=== PATIENT | male | born 1990 | race Caucasian/White ===

== ENCOUNTER 2019-11-18 16:50 | Emergency (ER) | payer SELFPAY ==
[2019-11-18 16:50] VITALS: BP 114/75; PULSE 91; RESP 18; TEMP 37.5; O2SAT 99; BMI 21.2
--- NOTE | 2019-11-18 17:20 | ED_ITS ---
HPI - Abdominal Pain General: Chief Complaint: Back Pain/Injury Stated Complaint: kidney problems Source: patient Mode of arrival: ambulatory Limitations: no limitations History of Present Illness: HPI narrative: Patient is a 29-year-old male who presents to ED today with a complaint of left-sided abdominal pain. Patient tells me 6 weeks ago he was seen at an emergency department in [place] where he was diagnosed with a urinary tract infection. Patient tells me he was placed on antibiotics at this visit. He states a few days ago while at home he noticed he urinated two small kidney stones. He states since then he has had severe pain to the left side of his abdomen. He is complaining of nausea without vomiting. He reports a decreased appetite. Normal bowel movements. He has not been running fevers. MD elicited complaint: abdominal pain Pertinent past history: kidney stones Onset (ago): day(s) Pain Consistency: constant Location: LUQ Severity: severe Quality: sharp Radiation: none Migration to: no migration Exacerbating factors: nothing Relieving factors: nothing Associated Symptoms: Reports dysuria, hematuria and nausea; Denies change in bowel habits, chills, diarrhea, fever(s) and vomiting Review of Systems Const: Reports: change in appetite; Denies: fever(s), chills, body aches, change in weight, fatigue or malaise Eyes: Denies: change in vision, blurry vision or photophobia Card: Denies: chest pain Resp: Denies: dyspnea GI: Reports: abdominal pain and nausea; Denies: vomiting, diarrhea or change in bowel habits : Reports: flank pain, dysuria and hematuria; Denies: difficulty urinating, urinary urgency, urinary dribbling, genital pain or genital lesions Musc: Denies: neck pain, back pain, extremity pain, extremity swelling, joint pain or joint swelling Skin/Breast: Denies: rash Neuro: Denies: headache(s), numbness in extremities, weakness in extremities or sensory changes Physical Exam Const: COMMON NORMALS: average body habitus, patient oriented x3, no limitations, healthy appearing, alert and well nourished GENERAL APPEARANCE: cooperative and in distress (appears very uncomfortable) ORIENTATION/CONSCIOUSNESS: Yes oriented to person, Yes oriented to place and Yes oriented to time HENMT: COMMON NORMALS: normocephalic and atraumatic HEAD & SCALP: normocephalic and atraumatic Resp: COMMON NORMALS: normal respiratory effort and clear to auscultation bilaterally AUSCULTATION: clear to auscultation bilaterally Cardio: COMMON NORMALS: regular rate and regular rhythm RATE: regular rate RHYTHM: regular rhythm GI: COMMON NORMALS: Normal to inspection, nondistended, normoactive bowel alvarez nds present, No hepatosplenomegaly present and no masses PALPATION: Yes Tenderness to palpation present (GI) Details: LUQ, Yes Guarding due to palpation present (GI) and Yes No hepatosplenomegaly present : BLADDER/KIDNEY EXAM: Yes CVA tenderness on the left Back/Pelvis: GENERAL BACK: Yes CVA tenderness Extremity: GENERAL: Yes normal exam except as noted Neuro: COMMON NORMALS: patient oriented x3 SENSORIUM/ORIENTATION: Yes alert, Yes oriented to person, Yes oriented to place and Yes oriented to time Skin: COMMON NORMALS: no rashes or lesions noted GENERAL SKIN EXAM: no rashes or lesions noted Course Consultations: Consultation #1: Dr. Augustin urology, accepts patient Consultation #2: Dr. Sotelo hospitalist, accepts patient Vital Signs: Vital signs: Vital Signs Temperature 99.5 F 11/18/19 16:50 Pulse Rate 72 11/18/19 20:00 Respiratory Rate 18 11/18/19 20:00 Blood Pressure 112/67 11/18/19 20:00 Pulse Oximetry 97 11/18/19 20:00 MDM - Abdominal Pain MDM Narrative: Medical decision making narrative: Patient has obstructive pyelonephritis secondary to a 7 x 9 mm left ureter stone. He has a white count of 34.2. He has a normal lactate. He is not tachycardic, hypotensive, or febrile. Unfortunately we do not have urology solids control technician. I have spoken to Dr. Gavin trammell [facility] who will accept patient. He has been started on IV rocephin. Lab Data: Labs: Lab Results 11/18/19 11/18/19 11/18/19 Range/Units 17:30 17:30 17:30 WBC 34.2 H* (4.0-10.0) 10^3/ uL RBC 4.04 L (4.1-5.3) 10^6/u L Hgb 13.1 (11.7-16.6) g/dL Hct 37.9 L (42.0-52.0) % MCV 93.8 (80-94) fL MCH 32.4 (28.0-34.0) pg MCHC 34.6 (30.0-36.0) g/dL RDW 11.9 L (12.1-15.1) % Plt Count 473 H (130-400) 10^3/c mm MPV 10.2 (7.4-10.4) fL Neut % (Auto) 86.8 % Lymph % (Auto) 4.7 % [place] % (Auto) 6.3 % Eos % (Auto) 0.1 % Baso % (Auto) 0.3 % Neut # (Auto) 29.69 H (1.8-7.7) 10^3/u L Lymph # (Auto) 1.6 (0.8-4.8) 10^3/u L [place] # (Auto) 2.1 H (0.2-0.9) 10^3/u L Eos # (Auto) 0.0 (0.0-0.8) 10^3/u L Baso # (Auto) 0.1 (0.0-0.1) 10^3/u L Nucleated RBC % (a uto) 0 % Nucleated RBCs # 0.0 /100WBC Sodium 125 L (136-145) mmol/L Potassium 4.8 (3.5-5.1) mmol/L Chloride 88 L (98-107) mmol/L Carbon Dioxide 24 (22-29) mmol/L Anion Gap 17.8 (5-19) BUN 18 (6-20) mg/dL Creatinine 1.2 (0.7-1.2) mg/dL GFR Calculation 72.1 L (90-130) mL/min Glucose 127 H (65-115) mg/dL Calculated Osmolal ity 263 L (285-295) mOsm/k g Lactic Acid 1.3 (0.5-2.2) mmol/L Calcium 8.9 (8.5-10.5) mg/dL Total Bilirubin 1.2 (0.15-1.2) mg/dL AST 18 (0-40) U/L ALT 16 (0-41) U/L Alkaline Phosphata se 156 H (40-130) IU/L Total Protein 7.7 (6.6-8.7) g/dL Albumin 3.1 L (3.5-5.2) g/dL Globulin 4.6 (1.3-4.6) g/dL Lipase 23 (13-60) U/L Urine Color (Yellow) Urine Appearance (CLEAR) Urine pH (5-7) Ur Specific Gravit y (1.005-1.030) Urine Protein (Negative) Urine Glucose (UA) (Normal) Urine Ketones (Negative) Urine Blood (Negative) Urine Nitrate (Negative) Urine Bilirubin (Negative) Urine Urobilinogen (Negative) mg/dL Ur Leukocyte Eleanor ase (Negative) Urine RBC (0-2) /hpf Urine WBC (0-5) /hpf Ur Squamous Epith Cells (0-5) /hpf Amorphous Sediment Urine Bacteria (NONE) /hpf Coarse Granular Ca sts /lpf 11/18/19 Range/Units 17:30 WBC (4.0-10.0) 10^3/ uL RBC (4.1-5.3) 10^6/u L Hgb (11.7-16.6) g/dL Hct (42.0-52.0) % MCV (80-94) fL MCH (28.0-34.0) pg MCHC (30.0-36.0) g/dL RDW (12.1-15.1) % Plt Count (130-400) 10^3/c mm MPV (7.4-10.4) fL Neut % (Auto) % Lymph % (Auto) % [place] % (Auto) % Eos % (Auto) % Baso % (Auto) % Neut # (Auto) (1.8-7.7) 10^3/u L Lymph # (Auto) (0.8-4.8) 10^3/u L [place] # (Auto) (0.2-0.9) 10^3/u L Eos # (Auto) (0.0-0.8) 10^3/u L Baso # (Auto) (0.0-0.1) 10^3/u L Nucleated RBC % (a uto) % Nucleated RBCs # /100WBC Sodium (136-145) mmol/L Potassium (3.5-5.1) mmol/L Chloride (98-107) mmol/L Carbon Dioxide (22-29) mmol/L Anion Gap (5-19) BUN (6-20) mg/dL Creatinine (0.7-1.2) mg/dL GFR Calculation (90-130) mL/min Glucose (65-115) mg/dL Calculated Osmolal ity (285-295) mOsm/k g Lactic Acid (0.5-2.2) mmol/L Calcium (8.5-10.5) mg/dL Total Bilirubin (0.15-1.2) mg/dL AST (0-40) U/L ALT (0-41) U/L Alkaline Phosphata se (40-130) IU/L Total Protein (6.6-8.7) g/dL Albumin (3.5-5.2) g/dL Globulin (1.3-4.6) g/dL Lipase (13-60) U/L Urine Color Yellow (Yellow) Urine Appearance Sl cloudy A (CLEAR) Urine pH 5 (5-7) Ur Specific Gravit y 1.015 (1.005-1.030) Urine Protein 1+ H (Negative) Urine Glucose (UA) Norm (Normal) Urine Ketones Negative (Negative) Urine Blood Neg (Negative) Urine Nitrate Positive H (Negative) Urine Bilirubin Neg (Negative) Urine Urobilinogen 4+ H (Negative) mg/dL Ur Leukocyte Eleanor ase 1+ H (Negative) Urine RBC 0-4 H (0-2) /hpf Urine WBC 25-40 H (0-5) /hpf Ur Squamous Epith Cells 0-4 H (0-5) /hpf Amorphous Sediment Not Reportable Urine Bacteria 3+ H (NONE) /hpf Coarse Granular Ca sts Rare /lpf Imaging Data ^: CT Abd/Pel: Radiologist's impression: [address] [address] [address] Scan Report Signed Patient: Alejandro Wilkinson Unit #: [id number] : 1990 Age/Sex: 29 / M ADM Date: 11/18/19 Loc: ER Room/Bed: Attending Dr: Ordering Provider/Ordering MD: Khalida Vasquez Date of Service: 11/18/19 Procedure(s): CT kidney stone 30585 Accession Number(s): [id number] Report Number: [id number] PROCEDURE INFORMATION: Exam: CT Abdomen And Pelvis Without Contrast Exam date and time: 11/18/2019 6:21 PM Age: 29 years old Clinical indication: Abdominal pain; Left; Patient HX: C/O worsening L flank pain - known stone; Additional info: L flank, luq pain; Known kidney stones; Severe leukocytosis TECHNIQUE: Imaging protocol: Computed tomography of the abdomen and pelvis without contrast. Radiation optimization: All CT scans at this facility use at least one of these dose optimization techniques: automated exposure control; mA and/or kV adjustment per patient size (includes targeted exams where dose is matched to clinical indication); or iterative reconstruction. COMPARISON: No relevant prior studies available. RADIATION DOSE METRICS: Total DLP (mGy-cm): 548.05 FINDINGS: Liver: Normal. No mass. Gallbladder and bile ducts: Normal. No calcified stones. No ductal dilation. Pancreas: Normal. No ductal dilation. Spleen: Normal. No splenomegaly. Adrenals: Normal. No mass. Kidneys and ureters: There is a 7.6 x 9.5 mm calculus in the mid to distal left ureter. Moderate left hydronephrosis/hydroureter and perinephric/periureteral inflammatory stranding. The left kidney is inhomogeneous raising concern for pyelonephritis. There is a 2 mm nonobstructing right renal calculus. Stomach and bowel: Unremarkable. No obstruction. No mucosal thickening. Appendix: A normal appendix is identified. Intraperitoneal space: There is a small amount of free fluid in the pelvis. Vasculature: Unremarkable. No abdominal aortic aneurysm. Lymph nodes: Unremarkable. No enlarged lymph nodes. Bladder: Unremarkable as visualized. Reproductive: Unremarkable as visualized. Bones/joints: Unremarkable. No acute fracture. Soft tissues: Unremarkable. CT/CT kidney stone [id number] IMPRESSION: 1. There is a 7.6 x 9.5 mm calculus in the mid to distal left ureter with obstructive changes as described above. 2. Left kidney is inhomogeneous concerning for acute pyelonephritis. Consider CT scan of the abdomen/pelvis with IV contrast and delayed images, renal protocol, for further evaluation as clinically warranted. Radiation Dose CTDIVOL = (mGy): DLP = 548.05 (mGy-cm) Dictated By: Laurence Romero MD Signed By: Laurence Romero MD Signed Date/Time: 11/18/192015 DD/ 13 Discharge Plan Discharge Patient Disposition: Xfer Other Clinical Impression: Obstructive pyelonephritis, Calculus of left ureter Leukocytosis Qualifiers: Leukocytosis type: unspecified Qualified Code(s): D72.829 - Elevated white blood cell count, unspecified Condition: Stable Coding Level of Care Code ED Zone Supervisor Firearms for Chg Fwd Exam Comprehensive
[2019-11-18 17:40] LABS: Basophils # 0.1 10^3/uL (0.0-0.1); Basophils % 0.3 %; Eosinophils % 0.1 %; Hematocrit 37.9 % (42.0-52.0); Hemoglobin 13.1 g/dL (11.7-16.6); Lymphocytes # 1.6 10^3/uL (0.8-4.8); Lymphocytes % 4.7 %; Mean Corpuscular HGB Conc 34.6 g/dL (30.0-36.0); Mean Corpuscular Hemoglobin 32.4 pg (28.0-34.0); Mean Corpuscular Volume 93.8 fL (80-94); Mean Platelet Volume 10.2 fL (7.4-10.4); Monocytes # 2.1 10^3/uL (0.2-0.9); Monocytes % 6.3 %; Neutrophils # 29.69 10^3/uL (1.8-7.7); Neutrophils % 86.8 %; Nucleated Red Blood Cells % 0 %; Platelet Count 473 10^3/cmm (130-400); Red Blood Count 4.04 10^6/uL (4.1-5.3); Red Cell Distribution Width 11.9 % (12.1-15.1)
[2019-11-18] MEDS: morphine 4 mg/mL SDV 1 mL IVP (17:45)
[2019-11-18] MEDS: ondansetron 2 mg/ML SDV 2 mL 4 MG IVP (17:45)
[2019-11-18] MEDS: sodium chloride 0.9% 1,000 ML 999 ML IV ×2 (17:45→18:22)
[2019-11-18 17:51] VITALS: O2SAT 98
[2019-11-18 17:54] LABS: White Blood Count 34.2 10^3/uL (4.0-10.0)
[2019-11-18 18:00] LABS: Lactic Sepsis W/Reflex 1.3 mmol/L (0.5-2.2)
[2019-11-18 18:05] LABS: Alanine Aminotransferase 16 U/L (0-41); Albumin Level 3.1 g/dL (3.5-5.2); Alkaline Phosphatase 156 IU/L (40-130); Anion Gap 17.8 (5-19); Aspartate Amino Transferase 18 U/L (0-40); Blood Urea Nitrogen 18 mg/dL (6-20); Calcium 8.9 mg/dL (8.5-10.5); Carbon Dioxide 24 mmol/L (22-29); Chloride 88 mmol/L (98-107); Globulin 4.6 g/dL (1.3-4.6); Glomerular Filtration Rate 72.1 mL/min (90-130); Glucose 127 mg/dL (65-115); Lipase 23 U/L (13-60); Osmolality Calculated 263 mOsm/kg (285-295); Potassium 4.8 mmol/L (3.5-5.1); Sodium 125 mmol/L (136-145); Total Bilirubin 1.2 mg/dL (0.15-1.2); Total Protein 7.7 g/dL (6.6-8.7)
--- NOTE | 2019-11-18 18:07 | CTR_ITS ---
PROCEDURE INFORMATION: Exam: CT Abdomen And Pelvis Without Contrast Exam date and time: 11/18/2019 6:21 PM Age: 29 years old Clinical indication: Abdominal pain; Left; Patient HX: C/O worsening L flank pain - known stone; Additional info: L flank, luq pain; Known kidney stones; Severe leukocytosis TECHNIQUE: Imaging protocol: Computed tomography of the abdomen and pelvis without contrast. Radiation optimization: All CT scans at this facility use at least one of these dose optimization techniques: automated exposure control; mA and/or kV adjustment per patient size (includes targeted exams where dose is matched to clinical indication); or iterative reconstruction. COMPARISON: No relevant prior studies available. RADIATION DOSE METRICS: Total DLP (mGy-cm): 548.05 FINDINGS: Liver: Normal. No mass. Gallbladder and bile ducts: Normal. No calcified stones. No ductal dilation. Pancreas: Normal. No ductal dilation. Spleen: Normal. No splenomegaly. Adrenals: Normal. No mass. Kidneys and ureters: There is a 7.6 x 9.5 mm calculus in the mid to distal left ureter. Moderate left hydronephrosis/hydroureter and perinephric/periureteral inflammatory stranding. The left kidney is inhomogeneous raising concern for pyelonephritis. There is a 2 mm nonobstructing right renal calculus. Stomach and bowel: Unremarkable. No obstruction. No mucosal thickening. Appendix: A normal appendix is identified. Intraperitoneal space: There is a small amount of free fluid in the pelvis. Vasculature: Unremarkable. No abdominal aortic aneurysm. Lymph nodes: Unremarkable. No enlarged lymph nodes. Bladder: Unremarkable as visualized. Reproductive: Unremarkable as visualized. Bones/joints: Unremarkable. No acute fracture. Soft tissues: Unremarkable. CT/CT kidney stone [id number] IMPRESSION: 1. There is a 7.6 x 9.5 mm calculus in the mid to distal left ureter with obstructive changes as described above. 2. Left kidney is inhomogeneous concerning for acute pyelonephritis. Consider CT scan of the abdomen/pelvis with IV contrast and delayed images, renal protocol, for further evaluation as clinically warranted. Radiation Dose CTDIVOL = (mGy): DLP = 548.05 (mGy-cm)
[2019-11-18] MEDS: cefTRIAXone 1,000 MG in sodium chloride 0.9% (plus) 50 ML 100 MG IV (18:22)
[2019-11-18 18:25] LABS: Bilirubin Urine Neg (Negative); Blood Urine Neg (Negative); Glucose Urine UA Norm (Normal); Ketones Urine Negative (Negative); Nitrate Urine Positive (Negative); Protein Urine 1+ (Negative); Specific Gravity, Urine 1.015 (1.005-1.030); Urine Color Yellow (Yellow); pH Urine 5 (5-7)
[2019-11-18 18:26] LABS: Add Urine Microscopic? YES; Leukocyte Esterase Urine 1+ (Negative); RBC Urine 0-4 /hpf (0-2); Urobilinogen Urine 4+ mg/dL (Negative); WBC Urine 25-40 /hpf (0-5)
[2019-11-18 18:27] LABS: Add Urine Culture? Yes; Bacteria Urine 3+ /hpf; Coarse Granular Casts Urine RARE /lpf; Squamous Epithelial Cell Urine 0-4 /hpf (0-5)
[2019-11-18 19:50] VITALS: RESP 18
[2019-11-18] MEDS: fentaNYL 50 mcg/mL INJ 2mL IVP ×2 (19:50→23:59)
[2019-11-18 20:00] VITALS: BP 112/67; PULSE 72; RESP 18; O2SAT 97
--- NOTE | 2019-11-18 20:10 | PC.NURSE ---
Attempts to reach Brother unsuccessful
--- NOTE | 2019-11-18 20:19 | PC.NURSE ---
Brother christina in aware of transfer
[2019-11-18 23:31] VITALS: BP 115/67; PULSE 97; RESP 16; O2SAT 99
[2019-11-18 23:59] VITALS: RESP 16
[2019-11-19 00:12] VITALS: BP 120/66; PULSE 68; RESP 18
== END 2019-11-19 00:10 | disposition other institution (70) ==
PROVIDERS: Emergency Provider Physician Assistant
DX: N20.1 Calculus of ureter (principal); D72.829 Elevated white blood cell count, unspecified
CPT/HCPCS: 12345; 36415; 74176; 80053; 81001; 83605; 83690; 85025; 87040; 87077; 87086; 87186; 87205; 96365; 96375; 99283; 99284; J0696; J2270; J2405; J3010; J7030

== ENCOUNTER → 2021-02-24 15:42 | Outpatient (BNVA) | payer OTHER, SELFPAY | PROVIDERS: Visit Provider Nurse Practitioner Family | DX: Z20.822 Contact with and (suspected) exposure to COVID-19 (principal) | CPT/HCPCS: 87635 ==

== ENCOUNTER 2022-10-13 18:58 | Emergency (ER) | payer OTHER, SELFPAY ==
[2022-10-13 19:09] VITALS: BP 133/87; PULSE 97; RESP 16; TEMP 36.7; O2SAT 100; BMI 22.3
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
[2022-10-13 22:21] VITALS: RESP 18
[2022-10-13] MEDS: morphine 4 mg/mL SDV 1 mL IVP (22:21)
[2022-10-13] MEDS: tetanus-dipt-pertussis 0.5 mL SDV IM (22:21)
[2022-10-13] MEDS: ondansetron 2 mg/ML SDV 2 mL 4 MG IVP (22:21)
[2022-10-13 22:35] LABS: Basophils % 0.4 %; Eosinophils # 0.2 10^3/uL (0.0-0.8); Eosinophils % 1.9 %; Hematocrit 44.4 % (42.0-52.0); Hemoglobin 15.2 g/dL (11.7-16.6); Lymphocytes # 2.7 10^3/uL (0.8-4.8); Lymphocytes % 24.9 %; Mean Corpuscular HGB Conc 34.2 g/dL (30.0-36.0); Mean Corpuscular Hemoglobin 33.3 pg (28.0-34.0); Mean Corpuscular Volume 97.4 fl (80-94); Mean Platelet Volume 9.8 fL (7.4-10.4); Monocytes # 0.7 10^3/uL (0.2-0.9); Monocytes % 6.5 %; Neutrophils % 66.1 %; Nucleated Red Blood Cells % 0 %; Platelet Count 345 10^3/cmm (130-400); Red Blood Count 4.56 10^6/uL (4.1-5.3); Red Cell Distribution Width 12.2 % (12.1-15.1); White Blood Count 10.7 10^3/uL (4.0-10.0)
[2022-10-13 22:53] LABS: Alanine Aminotransferase 20 U/L (0-41); Albumin Level 4.5 g/dL (3.5-5.2); Alkaline Phosphatase 126 U/L (40-130); Anion Gap 14.7 (5-19); Aspartate Amino Transferase 20 U/L (0-40); Blood Urea Nitrogen 18 mg/dL (6-20); Calcium 9.1 mg/dL (8.5-10.5); Carbon Dioxide 26 mmol/L (22-29); Chloride 103 mmol/L (98-107); Globulin 2.8 g/dL (1.3-4.6); Glomerular Filtration Rate 87.2 mL/min (90-130); Glucose 178 mg/dL (65-115); Osmolality Calculated 296 mOsm/kg (285-295); Potassium 3.7 mmol/L (3.5-5.1); Sodium 140 mmol/L (136-145); Total Bilirubin 0.4 mg/dL (0.15-1.2); Total Protein 7.3 g/dL (6.6-8.7)
[2022-10-13] MEDS: iohexol 350 mg/mL 500 mL Btl (per mL) IV (22:55)
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
[2022-10-14 00:34] VITALS: BP 119/60; PULSE 68; RESP 16; O2SAT 96
[2022-10-14 00:53] VITALS: BP 119/60
--- NOTE | 2022-10-15 12:02 | DCPLANNER ---
engagement manager called patient due to no primary care physician - no answer at this time
== END 2022-10-14 01:09 | disposition home or self-care (01) ==
PROVIDERS: Emergency Provider Family Medicine
DX: S40.012A Contusion of left shoulder, initial encounter (principal); S42.022A Displaced fracture of shaft of left clavicle, initial encounter for closed fracture; S06.9X9A Unspecified intracranial injury with loss of consciousness of unspecified duration, initial encounter; S00.03XA Contusion of scalp, initial encounter; F17.210 Nicotine dependence, cigarettes, uncomplicated; V18.0XXA Pedal cycle driver injured in noncollision transport accident in nontraffic accident, initial encounter; Z23 Encounter for immunization
CPT/HCPCS: 70450; 71260; 72125; 73030; 74177; 80053; 85025; 90471; 90715; 96374; 96375; 99285; J2270; J2405; Q9967